=== PATIENT | male | born 1935 | race Caucasian/White ===

== ENCOUNTER 2024-10-02 16:44 | Inpatient (IN) | payer OTHER, MEDICARE ==
[~2024-10-02] VITALS: Ht 165.1 cm; Wt 80.3 kg
[2024-10-02 19:14] VITALS: BP 125/73
--- NOTE | 2024-10-02 19:31 | NUR ---
pt arrived via [place] acompanied by [facility]. Pt on room air, sobwith exertion noted. cooperative with admit questions and assessments.
[2024-10-02 19:37] LABS: BASOPHILS 0.4 % (0-2); EOSINOPHILS 0.5 % (0-6); HEMATOCRIT 23.7 % (35.0-50.0); HEMOGLOBIN 7.6 g/dL (12.0-18.0); MCH 25.2 (27-36); MCHC 31.9 g/dl (30-36); MCV 78.9 fl (81-99); MONOCYTES 11.2 % (0-12); NEUTROPHILS 69.9 % (39-80); PLATELET COUNT 385 K/uL (140-440)
[2024-10-02 20:01] LABS: ALBUMIN 3.1 g/dL (3.4-5.0); ALBUMIN/GLOBULIN RATIO 0.94 (1.1-2.4); ANION GAP 17.3 (7-21); BUN/CREATININE RATIO 19.73 (6.0-28.6); CALCIUM 8.3 mg/dL (8.5-10.1); CREATININE, SERUM 1.52 mg/dL (0.70-1.30); POTASSIUM 4.3 mmol/L (3.5-5.1); PROTEIN, TOTAL 6.4 g/dL (6.4-8.2); TSH, 3RD GENERATION 1.463 uIU/mL (0.358-3.740)
--- NOTE | 2024-10-02 20:22 | NUR ---
troponin 208.5, dr lopez notified verbally. md in room with pt. tele#[address], afib w SVPB. sob with any exertion noted, denies CP. EKG obtained. in room. med list obtained
[2024-10-02] MEDS ORDERED: ondansetron HCL 4 MG/2 ML VIAL IV PRN (20:45)
[2024-10-02] MEDS ORDERED: GLUCAGON,HUMAN RECOMBINANT 1 MG/ML VIAL SUB-Q PRN (20:45)
[2024-10-02] MEDS ORDERED: ACETAMINOPHEN 325 MG TAB PO PRN (20:45)
[2024-10-02] MEDS ORDERED: bisacodyL 10 MG SUPP PR PRN (20:45)
[2024-10-02] MEDS ORDERED: DEXTROSE 5% 1,000 ML IV PRN (20:45)
[2024-10-02] MEDS ORDERED: DEXTROSE 50% 50 ML SYR IV PRN ×2 (20:45)
[2024-10-02] MEDS ORDERED: IBLOOD GLUCOSE TEST STRIP 1 EA TEST XX PRN (20:45)
[2024-10-02] MEDS ORDERED: CEFTRIAXONE/SODIUM CHLORIDE 2 GM/100 ML PIGGYBACK IV SCH (20:47)
[2024-10-02] MEDS ORDERED: FLUOROURACIL40 GM TOP (20:47)
[2024-10-02] MEDS ORDERED: AZITHROMYCIN 250 MG TAB PO SCH (20:48)
[2024-10-02] MEDS ORDERED: IBLOOD GLUCOSE TEST STRIP 1 EA TEST VI SCH (21:00)
[2024-10-02] MEDS ORDERED: FUROSEMIDE 100 MG/10 ML VIAL IV ONE (21:00)
[2024-10-02] MEDS ORDERED: MELATONIN 3 MG TAB PO PRN (21:00)
[2024-10-02] MEDS ORDERED: INSULIN LISPRO 100 UNIT/ML ML SUB-Q SCH (21:00)
[2024-10-02] MEDS ORDERED: APIXABAN 2.5 MG TAB PO SCH (21:00)
[2024-10-02] MEDS ORDERED: LISINOPRIL5 MG PO (21:14)
[2024-10-02] MEDS ORDERED: ISOSORBIDE MONO30 MG PO (21:14)
[2024-10-02] MEDS ORDERED: TOPROL XL25 MG PO (21:15)
[2024-10-02] MEDS ORDERED: NITROGLYCERIN0.4 MG SL (21:15)
[2024-10-02] MEDS ORDERED: PROTONIX40 MG PO (21:16)
[2024-10-02] MEDS ORDERED: CARBOXYMETHYLCE15 ML OU (21:18)
[2024-10-02] MEDS ORDERED: SPIRONOLACTONE25 MG PO (21:18)
[2024-10-02] MEDS ORDERED: VITAMIN C100 MG PO (21:19)
[2024-10-02] MEDS ORDERED: ADULT LOW DOSE81 MG PO (21:19)
[2024-10-02] MEDS ORDERED: LIPITOR80 MG PO (21:20)
[2024-10-02] MEDS ORDERED: THERA-D50 MCG PO (21:22)
--- NOTE | 2024-10-02 21:24 | NUR ---
Dr Dwyer in room with pt. new orders for acapella and cough drops given verbally
[2024-10-02] MEDS ORDERED: CLOPIDOGREL75 MG PO (21:28)
[2024-10-02] MEDS ORDERED: JARDIANCE10 MG PO (21:29)
[2024-10-02] MEDS ORDERED: B-12500 MCG PO (21:29)
[2024-10-02] MEDS ORDERED: MENTHOL/CETYLPYRD CL 1 LOZ LOZENGE PO PRN (21:30)
--- NOTE | 2024-10-02 21:33 | NUR ---
pt taken to DI for CAT SCAN via w/c.
--- NOTE | 2024-10-02 23:10 | NUR ---
PATIENT CALLED STATING "I PEED". IN TO THE ROOM. PATIENT HAVE MALE PUREWICK. TUBING IS KINK. PATIENT HOSPITAL PANTS AND OWN UNDERWEAR ARE WET. RAINER CARE DONE. CHANGED CHUX AND ATTENDS UNDER PLACED. PUREWICK IN WORKING. ICE WATER REFRESHED. BED ALARM ON FOR SAFETY. IN SITTING UP IN THE CHAIR. DENIES FURTHER NEEDS AT THIS TIME.
--- NOTE | 2024-10-02 23:55 | NUR ---
awake, watching tv. continues to have moist non productive cough, sob with exertion. purewick in place.
[2024-10-03] VITALS (8 sets, daily range): BP systolic 108–126; BP diastolic 46–74
--- NOTE | 2024-10-03 00:20 | NUR ---
PATIENT CALLED STATING "PEE BAG IS FULL". IN TO THE ROOM. EMPTIED CANISTER AND BACK IN PLACED. PATIENT DENIES OTHER NEEDS.
--- NOTE | 2024-10-03 02:31 | NUR ---
Awakens easily, no c/o pain, improved breathing, on room air. Lungs coarse exp. tele#[address], on SR/ STach , denies CP. continues to have moist productive cough of thick clear to pink phlegm. male purewick in place, draining large amounts of clear urine. decreased edema noted L leg, still 1+ R LE, elevated. no c/o Pain. in room
--- NOTE | 2024-10-03 02:34 | NUR ---
Protonin 225.7. will notify Dr Dwyer in am, pt asymptomatic
--- NOTE | 2024-10-03 04:19 | NUR ---
awakens easily, no c/o cp, tele#[address] SR SVPB's. On room air, much improved breathing effort. male purewick in place, draining large amounts of clear yellow urine., repositions self in bed. tolerating sips of fluids, edema to L leg much improved.. at bedside
[2024-10-03 05:22] LABS: BASOPHILS 0.5 % (0-2); EOSINOPHILS 0.5 % (0-6); HEMATOCRIT 25.7 % (35.0-50.0); HEMOGLOBIN 8.2 g/dL (12.0-18.0); LYMPHOCYTES 14.8 % (24-44); MCH 24.8 (27-36); MCHC 32.1 g/dl (30-36); MCV 77.4 fl (81-99); MONOCYTES 11.9 % (0-12); NEUTROPHILS 72.3 % (39-80); PLATELET COUNT 378 K/uL (140-440); RBC 3.32 M/ul (4.3-5.7); RDW 18.6 (10.5-15.0)
[2024-10-03 05:30] LABS: ANION GAP 15.9 (7-21); BUN/CREATININE RATIO 18.18 (6.0-28.6); CALCIUM 8.8 mg/dL (8.5-10.1); CREATININE, SERUM 1.65 mg/dL (0.70-1.30); POTASSIUM 3.9 mmol/L (3.5-5.1)
--- NOTE | 2024-10-03 05:43 | NUR ---
awake, very minimum sob with exertion noted. Up for standing weight 84.2KG pure wick in place. decreased edema to LE noted. elevated. pleasant and cooperative
--- NOTE | 2024-10-03 06:05 | NUR ---
oral lozenger given on requests per moist cough-sore throat.
--- NOTE | 2024-10-03 07:17 | NUR ---
VERBAL REPORT RECEIVED FROM ESTUARDO CLANCY. PT RESTS IN BED WITH EYES CLOSED, RESP EVEN AND UNLABORED.
--- NOTE | 2024-10-03 07:27 | NUR ---
UR CLINICAL REVIEW: 2 [place] FOR [facility]ERSALUS-MEETS INPT CRITERIA FOR CHF MEDICARE INPT 10/02/24 @ 2044 ORDER MATCHES REG NO AUTH REQUIRED PER MEDICARE GUIDELINES DISCHARGE TO HOME WHEN STABLE
[2024-10-03] MEDS ORDERED: ALBUTEROL/IPRATROPIUM 3 ML NEB INH SCH (08:00)
--- NOTE | 2024-10-03 08:49 | NUR ---
IMAGING STAFF IN ROOM, ECHO IN PROGRESS.
[2024-10-03] MEDS ORDERED: CLOPIDOGREL BISULFATE 75 MG TAB PO SCH (09:00)
[2024-10-03] MEDS ORDERED: ATORVASTATIN 40 MG TAB PO SCH (09:00)
[2024-10-03] MEDS ORDERED: FUROSEMIDE 40 MG/4 ML VIAL IV SCH (09:00)
--- NOTE | 2024-10-03 09:59 | NUR ---
VISITED DURING SPIRITUAL CARE ROUNDS. PT SUPPORTED BY TRAIN CONTROL TECHNICIAN IN ROOM. BOTH EXPRESSED ELEAZAR SOURCE OF STRENGTH, DENIED IMMEDIATE NEEDS. CUT IN WORKER PROVIDED SUPPORTIVE PRESENCE, HOSPITALITY, PRAYER. PT AND TRAIN CONTROL TECHNICIAN EXPRESSED GRATITUDE, HOPE.
[2024-10-03] MEDS ORDERED: LEVOFLOXACIN500 MG PO (10:35)
[2024-10-03] MEDS ORDERED: IPRAT-ALBUT 0.5-3 ML INH (10:35)
--- NOTE | 2024-10-03 11:15 | NUR ---
Spoke with Berhane and his Lakisha. They live in [place]. House has 2 steps and a ramp. Pt does not use any assistive devices to walk. He has a nebulizer from his pcp for his pneumonia. He plans on dc to home when cleared medically. His pcp is V[facility] at [facility]. They deny financial issues. They do use assistance through [employer] for heating fuel. They deny other needs. Home when cleared medically.
[2024-10-03] MEDS ORDERED: PHARMACY RENAL DOSE ADJUSTMENT 1 DOSE MISC PO SCH (12:00)
[2024-10-03] MEDS ORDERED: STOPAIN118 ML TOP (13:46)
--- NOTE | 2024-10-03 13:51 | NUR ---
MED REC COMPLETE
[2024-10-03] MEDS ORDERED: MENTHOL TOP PRN (14:00)
--- NOTE | 2024-10-03 19:33 | NUR ---
REPORT RECIEVED FROM DAY SHIFT RN. PATIENT RESTING IN BED WITH IN ROOM. PATIENT DENIES NEEDS AT THIS TIME. CALL LIGHT IN REACH.
--- NOTE | 2024-10-03 20:35 | NUR ---
PATIENT RESTING IN BED. SCHEDULED MEDICATION ADMINISTERED. VS AND I&Os OBTAINED AND RECORDED. NEW PUREWICK PLACED AFTER RAINER CARE PROVIDED. IV FLUSHES WNL. ASSESSMENT COMPLETE. PATIENT DENIES FURTHER NEEDS AT THIS TIME. BED ALARM. RESTING IN CHAIR AT BEDSIDE. CALL LIGHT IN REACH.
--- NOTE | 2024-10-03 20:50 | NUR ---
CCU CALLED AND DISCUSSED WITH THIS RN THAT PATIENT HAS BEEN IN AND OUT OF AFIB DURING THE DAY SHIFT. PATIENT WAS IN AFIB AT 200. UPDATE PRIMARY RN.
[2024-10-03] MEDS ORDERED: HEParin SOD (PORCINE) 5,000 UNIT/ML SDV SUB-Q SCH (21:00)
--- NOTE | 2024-10-03 21:05 | NUR ---
CALL LIGHT ANSWERED. PATIENT REQUESTING PRN MEDICATION. MEDICATION APPLIED TO LEFT THIGH PER PATIENT REQUEST. PATIENT HAS NO FURTHER NEEDS. CALL LIGHT IN REACH.
--- NOTE | 2024-10-03 21:36 | NUR ---
UPDATED ON PATIENT BEING IN AND OUT OF AFIB. NO NEW ORDERS AT THIS TIME. PRIMAR RM UPDATED.
--- NOTE | 2024-10-03 22:52 | NUR ---
PATIENT RESTING IN BED ON BACK WITH EYES CLOSED. RESPIRATIONS EVEN AND UNLABORED. CALL LIGHT IN REACH.
[2024-10-04] VITALS (10 sets, daily range): BP systolic 101–120; BP diastolic 57–73
--- NOTE | 2024-10-04 01:11 | NUR ---
PATIENT RESTING IN BED WITH EYES CLOSED. VS AND I&Os OBTAINED AND RECORDED. PATIENT DENIES NEEDS AT THIS TIME. FRESH ICE WATER PROVIDED. BED ALARM ON. CALL LIGHT IN REACH.
--- NOTE | 2024-10-04 02:57 | NUR ---
PATIENT RESTING IN BED ON BACK WITH EYES CLOSED. RESPIRATIONS EVEN AND UNLABORED. CALL LIGHT IN REACH.
--- NOTE | 2024-10-04 05:21 | NUR ---
PATIENT RESTING IN BED. VS, I&Os AND BED WEIGHT OBTAINED AND RECORDED. PATIENT HAS NO CURRENT NEEDS. BED ALARM ON. CALL LIGHT IN REACH.
[2024-10-04 05:50] LABS: ALBUMIN 2.9 g/dL (3.4-5.0); ALBUMIN/GLOBULIN RATIO 0.85 (1.1-2.4); ANION GAP 15.5 (7-21); BILIRUBIN, TOTAL 1.3 ng/dL (0.2-1.0); BUN/CREATININE RATIO 23.91 (6.0-28.6); CALCIUM 8.4 mg/dL (8.5-10.1); CREATININE, SERUM 1.38 mg/dL (0.70-1.30); POTASSIUM 3.5 mmol/L (3.5-5.1); PROTEIN, TOTAL 6.3 g/dL (6.4-8.2)
--- NOTE | 2024-10-04 07:00 | NUR ---
VERBAL REPORT RECEIVED FROM ESTUARDO GENTILE. PT RESTS IN BED AWAKE AND ALERT, NO REQUESTS AT THIS TIME.
[2024-10-04] MEDS ORDERED: EMPAGLIFLOZIN 10 MG TAB PO SCH (09:00)
[2024-10-04] MEDS ORDERED: PANTOPRAZOLE SODIUM 40 MG TABEC PO SCH (09:00)
--- NOTE | 2024-10-04 09:54 | NUR ---
DR. SCRUGGS NOTIFIED OF PT HR OF 120'S - 140'S WITH A-FIB.
[2024-10-04] MEDS ORDERED: METOPROLOL TARTRATE 25 MG TAB PO SCH (09:55)
--- NOTE | 2024-10-04 11:49 | NUR ---
PUREWICK REMOVED. PT AMBULATES TO TOILET WITH SBA, STEADY GAIT. PT PASSES LARGE BM. PT BACK TO BED. PT INSTRUCTED TO USE CALL LIGHT FOR TOILETING NEEDS, VERBALIZES UNDERSTANDING.
--- NOTE | 2024-10-04 15:15 | NUR ---
Spoke with pt, , and son. They deny needs, plan cont. for pt to dc to home with when medically cleared. Pt would like to get up and start walking. Male bertinwiwendy is off. Per charge pt ok to walk with aid. I let the pt know he needs to use his call light and ask for the aid. Understanding stated.
--- NOTE | 2024-10-04 16:15 | NUR ---
PT RESTING IN BED WITH FAMILY IN ROOM. PT REQUESTED A LOZENGE. LOZENGE GIVEN PER ORDER. NO OTHER REQUESTS AT THIS TIME. CALL LIGHT WITHIN REACH.
--- NOTE | 2024-10-04 16:33 | NUR ---
PATIENT AMBULATED IN HALLWAY 1LAP SBA. PATIENT THEN TO BATHROM AND THEN TO CHAIR, SBA. FAMILY IN ROOM. CALL LIGHT IN REACH. NO FURTHER NEEDS AT THIS TIME.
--- NOTE | 2024-10-04 17:42 | NUR ---
WENT IN TO CHECK ON PATIENT. PATIENT IS SITTING UP IN HIS BED EATING HIS DINNER. ASKED HIM IS THERE ANYTHING HE NEEDS AND HE SAID NO NOT AT THIS TIME.
--- NOTE | 2024-10-04 18:02 | NUR ---
PT SITS UP IN BED, EATS DINNER, CALL LIGHT IN REACH. PT DENIES ANY NEEDS AT THIS TIME.
--- NOTE | 2024-10-04 19:14 | NUR ---
ANSWERED PATIENT'S CALL LIGHT. PATIENT NEEDED TO USE THE BATHROOM.
--- NOTE | 2024-10-04 19:26 | NUR ---
REPORT RECIEVED FROM DAY SHIFT RN. PATIENT RESTING IN BED WITH IN CHAIR AT BEDSIDE. PATIENT HAS NO CURRENT NEEDS. CALL LIGHT IN REACH.
--- NOTE | 2024-10-04 20:23 | NUR ---
CCU CALLED REGARDING PATIENTS HEART RHYTHM ON TELE. PATIENT IN VTACH FOR FOR 40 SECONDS PER CCU RN. PATIENT WAS IN AFIB PRIOR TO THE 40 SECOND RUN OF VTACH AND BACK TO AFIB AFTER. STRAP STITCHER, FLOAT RN, RT, AND THIS RN TO ROOM. VS OBTAINED AND RECORDED. PATIENT DENIES CHEST PAIN AT THIS TIME. PATIENT STATES HE DID NOT FEEL ABNORMAL AT THIS TIME. STRAP STITCHER REMAINS IN ROOM.
--- NOTE | 2024-10-04 20:34 | NUR ---
MD SCRUGGS UPDATED VIA TELEPHONE ON PATIENT 40 SECOND RUN OF VTACH. STAT BMP AND MAG ORDERS RECIEVED. ORDER VERIFIED USING REPEAT BACK METHOD.
[2024-10-04] MEDS ORDERED: APIXABAN 5 MG TAB PO SCH (21:00)
[2024-10-04 21:02] LABS: ANION GAP 12.5 (7-21); BUN/CREATININE RATIO 21.55 (6.0-28.6); CALCIUM 8.2 mg/dL (8.5-10.1); CREATININE, SERUM 1.67 mg/dL (0.70-1.30); MAGNESIUM 1.9 mg/dL (1.8-2.4); POTASSIUM 3.5 mmol/L (3.5-5.1)
--- NOTE | 2024-10-04 21:24 | NUR ---
LAB CALLED WITH TROPONIN LEVEL. PHONE CALL TO DR SCRUGGS, NO NEW ORDERS. CURRENTLY TELE WITH HR 116
--- NOTE | 2024-10-04 21:51 | NUR ---
ROUNDING ON PATIENT. PATIENT DENIES NEEDS AT THIS TIME. ASSESSMENT COMPLETE. R FOREARM IV LEAKING. R FOREARM IV DCd WNL WITH TIP INTACT. NEW IV PLACED BY THIS RN IN LEFT WRIST. PATIENT TOMMY WELL. PATIENT AND HAVE NO FURTHER NEEDS. BED ALARM ON. CALL LIGHT IN REACH.
--- NOTE | 2024-10-04 22:18 | NUR ---
CCU CALLED REGARDING PATIENTS HR. PATIENT HR IN THE 160s. MD ON FLOOR AT THIS TIME. HR QUICKLY BACK DOWN TO 110s-120s. THIS RN UPDATED MD OF HR. MD STATES HE WILL PLACE ORDERS.
[2024-10-04] MEDS ORDERED: POTASSIUM CHLORIDE 10 MEQ TABCR PO ONE (22:30)
[2024-10-04] MEDS ORDERED: MAGNESIUM OXIDE 400 MG TABLET PO ONE (22:30)
--- NOTE | 2024-10-04 22:52 | NUR ---
SCHEDULED MEDICATION ADMINISTERED.
[2024-10-04] MEDS ORDERED: FUROSEMIDE 100 MG/10 ML VIAL IV ONE (23:00)
[2024-10-04] MEDS ORDERED: ALBUMIN HUMAN 25% 100 ML BTL IV PRN (23:30)
--- NOTE | 2024-10-04 23:34 | NUR ---
SCHEDULED MEDICATION ADMINISTERED. PUREWICK PLACED AFTER PERICARE PROVIDED. NO FURTHER NEEDS. CALL LIGHT IN REACH.
[2024-10-05] VITALS (11 sets, daily range): BP systolic 94–118; BP diastolic 47–64
--- NOTE | 2024-10-05 01:10 | NUR ---
PATIENT RESTING IN BED. NO PAIN OR DISCOMFORT NOTED. VS AND I&Os OBTAINED AND RECORDED. PATIENT HAS NO FURTHER NEEDS. CALL LIGHT IN REACH.
--- NOTE | 2024-10-05 02:40 | NUR ---
PT CALLED, SAID HE WAS WET. HAS MALE PUREWICK. NOTED PUREWICK LOOSE ON THE LOWER AREA. PERICARE CARE COMPLETED. NEW MALE PUREWICK RECONNECTED. ASSISTED PT INTO SITTING HIGHER IN BED THE BED IS LOCKED AT 30%. BED ALARM IN PLACE. CALL LIGHT WITHIN REACH.
--- NOTE | 2024-10-05 05:10 | NUR ---
PATIENT RESTING IN BED. VS, STANDING WEIGHT AND I&Os OBTAINED AND RECORDED. PATIENT DENIES FURTHER NEEDS AT THIS TIME. CALL LIGHT IN REACH.
[2024-10-05 05:24] LABS: BASOPHILS 0.5 % (0-2); EOSINOPHILS 3.6 % (0-6); HEMATOCRIT 25.8 % (35.0-50.0); HEMOGLOBIN 8.3 g/dL (12.0-18.0); LYMPHOCYTES 14.7 % (24-44); MCH 24.3 (27-36); MCHC 32.1 g/dl (30-36); MCV 75.8 fl (81-99); NEUTROPHILS 71.2 % (39-80); PLATELET COUNT 350 K/uL (140-440); RDW 19.3 (10.5-15.0)
[2024-10-05 05:47] LABS: ANION GAP 10.8 (7-21); BUN/CREATININE RATIO 23.68 (6.0-28.6); CALCIUM 8.3 mg/dL (8.5-10.1); CREATININE, SERUM 1.52 mg/dL (0.70-1.30); MAGNESIUM 2.1 mg/dL (1.8-2.4); POTASSIUM 3.8 mmol/L (3.5-5.1)
--- NOTE | 2024-10-05 07:00 | NUR ---
REPORT RECEIVED FROM UNIT AID RN KRUPA. PATIENT IS LYING IN BED WITH EYES CLOSED AND RESPIRATIONS ARE UNLABORED. PATIENT IS LYING IN THE CHAIR. PATIENT STATED NO FURTHER NEEDS AT THIS TIME. CALL LIGHT AND PERSONAL BELONGINGS ARE WITHIN REACH.
--- NOTE | 2024-10-05 08:15 | NUR ---
0800 DUONEB COMPLETE AT THIS TIME WITH RT IN THE ROOM. 0900 MEDICATIONS ADMINISTERED PER THE EMAR AND PRN "STOPAIN" MEDICATION ADMINISTERED PER THE EMAR. PATIENT RATED PAIN 5/10 IN THE LEFT WRIST A "REY HORSE". PATIENT IS ALERT AND ORIENTED TIMES FOUR. PATIENT IS ON TELEMETRY NUMBER 7 AND IS SINUS TACHYCARDIA. HEART TONES ARE IRREGULAR ON AUSCULTATION. RADIAL AND PEDAL PULSES ARE STRONG BILATERALLY. CAPILLARY REFILL IS LESS THAN 3 SECONDS BILATERALLY. SENSATION INTACT WITH NO COMPLAINTS OF NUMBNESS AND TINGLING. PATIENT IS ON A 1,500 ML FLUID RESTRICTION AND ON A 2 G SODIUM DIET. BOWEL TONES ARE ACTIVE IN ALL FOUR QUADRANTS. IV SITE FLUSHED WITH 10 ML NORMAL SALINE AND THE IV DRESSING IS CLEAN, DRY, AND INTACT. LAST BM WAS 10/02/24. PATIENT IS ON ROOM AIR AND WITH NO COMPLAINTSE OF SOB. LUNG SOUNDS ARE CLEAR IN THE UPPPER LOBES AND DIMINISHED IN THE BASES BILATERALLY. PATIENT WITH A PRODUCTIVE COUGH NOTED. SKIN WITH SCATTERED BRUISING. PATIENT IS SET UP AND EATING BREAKFAST. PATIENT STATED NO FURTHER NEEDS AT THIS TIME. CALL LIGHT AND PERSONAL BELONGINGS ARE WITHIN REACH.
[2024-10-05] MEDS ORDERED: FUROSEMIDE 100 MG/10 ML VIAL IV SCH (09:00)
--- NOTE | 2024-10-05 09:20 | NUR ---
Spoke with pt and . They deny needs. They would like to go home, but aware pt is not medically ready.
--- NOTE | 2024-10-05 09:49 | NUR ---
PT NOT AVAILABLE FOR VISIT. PROVIDED PRAYER.
--- NOTE | 2024-10-05 09:52 | NUR ---
PATIENT IS SITTING UPRIGHT IN BED AND HIS IS SITTING IN THE CHAIR AT BEDSIDE. NORBERTO MCCAULEY IS IN THE ROOM. PATIENT STATED NO NEEDS AT THIS TIME. CALL LIGHT AND PERSONAL BELONGINGS ARE WITHIN REACH.
--- NOTE | 2024-10-05 10:30 | NUR ---
PATIENT IN BED AT THIS TIME. AUTOMATIC CORN GRINDER OPERATOR ASSISTED PATIENT INTO THE BATHROOM AND THEN BACK TO BED. AUTOMATIC CORN GRINDER OPERATOR CHARTED PATIENTS VOIDINGS ON CHART IN ROOM. CALL LIGHT WITHIN REACH, NO FURTHER NEEDS AT THIS TIME.
--- NOTE | 2024-10-05 10:32 | NUR ---
PATIENT IS LYING IN BED WITH HOB ELEVATED. PATIENT IS SITTING IN THE RECLINER AT BEDSIDE. PATIENT AND FAMILY STATED NO FURTHER NEEDS AT THIS TIME. CALL LIGHT AND PERSONAL BELONGINGS ARE WITHIN REACH.
--- NOTE | 2024-10-05 11:17 | NUR ---
PATIENT IS SITTING IN BED WITH HOB ELEVATED. PATIENT IS SPEAKING WITH TWO VISITORS SITTINON THE COUCH IN THE ROOM WITH HIS SITTING IN THE RECLINER AT BEDSIDE. PATIENT STATED NO FURTHER NEEDS, CALL LIGHT AND PERSONAL BELONGINGS ARE WITHIN REACH.
[2024-10-05] MEDS ORDERED: ALBUMIN HUMAN 25% 100 ML BTL IV ONE (12:00)
--- NOTE | 2024-10-05 12:04 | NUR ---
PER MD, ORDER TO INFUSE ALBUMIN DUE TO HYPOTENSION. PHARMACY CALLED AFTER VERIFYING WITH MD, NEW ORDERS UPDATED FOR CORRECT DOSE (100ML/25GRAMS). INFUSION STARTED, PRIMARY RN AWARE.
--- NOTE | 2024-10-05 12:28 | NUR ---
PATIENT IS SITTING IN BED WITH THE HOB ELEVATED AND EATING LUNCH. PATIENT IS FAUSTINO MORRIS THE RECLINER AT BEDSIDE. PATIENT WITH TWO VISITORS SITTING ON THE COUCH. CALL LIGHT AND PERSONAL BELONGINGS ARE WITHIN REACH.
--- NOTE | 2024-10-05 13:40 | NUR ---
PATIENT IS SITTING UPRIGHT IN BED WITH EYES OPEN AND RESPIRATIONS ARE EVEN AND UNLABORED. PAITENT WITH HIS SITTING IN THE RECLINER AT BEDSIDE. PATIENT WITH TAYO VISITORS SITTING ON THE COUCH. CALL LIGHT AND PERSONAL BELONGINGS ARE WITHIN REACH.
--- NOTE | 2024-10-05 14:14 | NUR ---
PATIENT IS LYING IN BED WITH EYES CLOSED AND RESPIRATIONS ARE EVEN AND UNLABORED. PATIENT WITH A VISITOR SITTING IN THE RECLINER AT BEDSIDE. CALL LIGHT AND PERSONAL BELONGINGS ARE WITHIN REACH.
[2024-10-05 14:26] LABS: ANION GAP 12.6 (7-21); BUN/CREATININE RATIO 20.25 (6.0-28.6); CALCIUM 8.3 mg/dL (8.5-10.1); CREATININE, SERUM 1.58 mg/dL (0.70-1.30); POTASSIUM 3.6 mmol/L (3.5-5.1)
--- NOTE | 2024-10-05 15:00 | NUR ---
REPORT RECEIVED FROM ESTUARDO WHALEY. PT RESTING IN BED AT THIS TIME WITH VISITOR AT BEDSIDE. NO REQUESTS, CALL LIGHT IN REACH.
[2024-10-05] MEDS ORDERED: POTASSIUM CHLORIDE 10 MEQ TABCR PO ONE (15:15)
--- NOTE | 2024-10-05 15:31 | NUR ---
FOCUSED ASSESSMENT COMPLETE. PT RESTING IN BED WITH NO COMPLAINTS OF PAIN, SHORTNESS OF BREATH, DENIES ANY NEEDS. PT HAS VISITOR AT BEDSIDE HER REPORTS IS HIS SON. PT IV IN L WRIST FLUSHES WNL. PT LUNG SOUNDS CLEAR ONLY IN RUL, DIMINISHED IN BLL AND MARCI. PT IS ON RA AND HAS OCCASIONAL COUGH. DENIES INTERVENTION FOR COUGH AT THIS POINT IN TIME. PT HEART TONES ARE IRREGULAR WITH TELE #[address] PT REQUESTS COFFEE - WITHIN HIS FLUID LIMIT FOR THE DAY - PROVIDED. PT HAS NO OTHER REQUESTS AT THIS TIME, CALL LIGHT IN REACH.
--- NOTE | 2024-10-05 18:15 | NUR ---
PT UP IN RECLINER AT THIS TIME, SON PRESENT BESIDE HIM. PT HAS BLE ELEVATED AND HAS NO COMPLAINTS AT THIS TIME. CALL LIGHT IN REACH.
--- NOTE | 2024-10-05 19:32 | NUR ---
REPORT RECIEVED FROM DAY SHIFT RN. PATIENT RESTING IN BED WITH IN ROOM. DENIES NEEDS AT THIS TIME. CALL LIGHT IN REACH.
--- NOTE | 2024-10-05 20:24 | NUR ---
PLANT CHIEF OBTAINED VITALS AND I&O. PT ICE WATER REFILLED. PT STATES NO FURTHER NEEDS AT THIS TIME. CALL LIGHT WITHIN REACH.
--- NOTE | 2024-10-05 21:07 | NUR ---
PATIENT RESTING IN BED. SCHEDULED MEDICATIONS ADMINISTERED. IV FLUSHES WNL. ASSESSMENT COMPLETE. PATIENT AND HAVE NO CURRENT NEEDS. BED ALARM ON. CALL LIGHT IN REACH.
--- NOTE | 2024-10-05 23:39 | NUR ---
PATIENT RESTING IN BED WITH EYES CLOSED. RESPIRATIONS EVEN AND UNLABORED. CALL LIGHT IN REACH.
[2024-10-06] VITALS (8 sets, daily range): BP systolic 102–120; BP diastolic 51–69
--- NOTE | 2024-10-06 00:29 | NUR ---
CALL LIGHT ANSWERED. PATIENT REPORTS PUREWICK LEAKING. THIS RN AND BALLOON PILOT OSMAN TO ROOM. NEW PUREWICK, BREIF AND LIN PLACED AFTER PERICARE PROVIDED. VS AND I&Os OBTIANED AND RECORDED. PATIENT DENIES FURTHER NEEDS AT THIS TIME. CALL LIGHT IN REACH. BED ALARM ON.
--- NOTE | 2024-10-06 02:34 | NUR ---
PATIENT RESTING IN BED ON BACK WITH EYES CLOSED. RESPIRATIONS EVEN AND UNLABORED. CALL LIGHT IN REACH.
--- NOTE | 2024-10-06 05:14 | NUR ---
PATIENT RESTING IN BED. VS, STANDING WEIGHT AND I&Os OBTAINED AND RECORDED. PATIENT TOMMY WELL. PATIENT REPOSTIONED IN BED. NO FURTHER NEEDS. CALL LIGHT IN REACH. BED ALARM ON.
[2024-10-06 05:37] LABS: ALBUMIN 3.3 g/dL (3.4-5.0); ALBUMIN/GLOBULIN RATIO 0.97 (1.1-2.4); ANION GAP 12.9 (7-21); BILIRUBIN, TOTAL 1.3 ng/dL (0.2-1.0); BUN/CREATININE RATIO 21.19 (6.0-28.6); CALCIUM 8.6 mg/dL (8.5-10.1); CREATININE, SERUM 1.51 mg/dL (0.70-1.30); POTASSIUM 3.9 mmol/L (3.5-5.1); PROTEIN, TOTAL 6.7 g/dL (6.4-8.2)
--- NOTE | 2024-10-06 07:18 | NUR ---
REPORT RECEIVED FROM ESTUARDO GENTILE. PT RESTING IN BED, RESPONDS WHEN THIS RN ENTERS. PTs PRESENT IN RECLINER AT BEDSIDE. PT HAS NO REQUESTS AT THIS TIME, PUREWICK IN PLACE DRAINING CLEAR, YELLOW URINE. CALL LIGHT IN REACH.
[2024-10-06] MEDS ORDERED: ALBUTEROL/IPRATROPIUM 3 ML NEB INH SCH (08:00)
--- NOTE | 2024-10-06 08:25 | NUR ---
MEDICATIONS ADMINISTERED, SEE NOV. BREAKFAST TRAY REMOVED. IV ABX INFUSING WNL. PRESENT AT BEDSIDE. PT HAS NO REQUESTS AT THIS TIME, CALL LIGHT IN REACH.
[2024-10-06] MEDS ORDERED: TORSEMIDE 20 MG TAB PO SCH (09:00)
[2024-10-06] MEDS ORDERED: POTASSIUM CHLORIDE 10 MEQ TABCR PO ONE (09:00)
--- NOTE | 2024-10-06 09:31 | NUR ---
VISITED DURING SPIRITUAL CARE ROUNDS. PT SUPPORTED BY IN ROOM. BOTH IN OVERALL GOOD SPIRITS, EXPRESSED SLIM AT IMMINENT DISCHARGE. CONTRACTING MANAGER PROVIDED SUPPORTIVE PRESENCE, HOSPITALITY, PRAYER. PT AND EXPRESSED GRATITUDE.
--- NOTE | 2024-10-06 10:13 | EKG ---
[facility] [address] [facility] [place], [place] [address] Signed Atrial fibrillation Nonspecific intraventricular conduction delay ST \T\ T wave abnormality, consider inferolateral ischemia Abnormal ECG No previous ECGs available Confirmed by Canid Scruggs DO ([id number]) on 10/06/2024 10:13:39 AM Electronically Signed By: CANDI SCRUGGS DO 10/06/24 1013 PATIENT NAME: JANEEN ARNDT Electrocardiogram DATE OF : [birth year] PHYSICIAN: CANDI SCRUGGS DO REPORT #: [id number] REPORT IS CONFIDENTIAL AND NOT TO BE RELEASED WITHOUT AUTHORIZATION
--- NOTE | 2024-10-06 10:16 | EKG ---
[facility] [place] [facility] [address] [facility] [place], [place] [address] Signed Atrial fibrillation with rapid ventricular response Nonspecific intraventricular conduction delay Marked ST abnormality, possible anterolateral subendocardial injury Abnormal ECG No previous ECGs available Confirmed by Vaughn Scruggs DO ([id number]) on 10/06/2024 10:16:54 AM Electronically Signed By: VAUGHN SCRUGGS DO 10/06/24 1016 PATIENT NAME: YRISJANEEN Noel Electrocardiogram DATE OF : [birth year] PHYSICIAN: VAUGHN SCRUGGS DO REPORT #: [id number] REPORT IS CONFIDENTIAL AND NOT TO BE RELEASED WITHOUT AUTHORIZATION
[2024-10-06] MEDS ORDERED: ELIQUIS5 MG PO (10:34)
[2024-10-06] MEDS ORDERED: TORSEMIDE20 MG PO (10:37)
--- NOTE | 2024-10-06 10:38 | NUR ---
ASSESSMENT COMPLETE. PT RESTING IN BED WITH AT BEDSIDE, HE IS EAGER TO BE GOING HOME. LUNG SOUNDS CLEAR THROUGHOUT, DIMINISHED IN THE RLL. PT REPORTS NO SOB, HE IS ON ROOM AIR WITH OCCASIONAL COUGH. HE REPORTS HIS COUGH PREVIOUSLY WAS NONPRODUCTIVE BUT SINCE RECEIVING A BREATHING TREATMENT FROM RT THIS MORNING HE IS HAVING CLEAR SECRETIONS. SECRETIONS NOTED IN EMESIS BAG ARE WHITISH-CLEAR AND THIN. PT HEART SOUNDS HEAR WNL, PT REPORTS NO NUMBNESS OR TINGLING, PULSES FELT 2+ AND STRONG IN ALL EXTREMETIES. PT REPORTS NO PAIN OR DISCOMFORT AT THIS TIME. PT REQUESTING TO SPEAK WITH CASE MANAGEMENT, JOYCELYN NOTIFIED AND STATES SHE WILL BE DOWN. NO OTHER REQUESTS, CALL LIGHT IN REACH.
[2024-10-06] MEDS ORDERED: POTASSIUM CHLO20 ME1 PO (10:39)
[2024-10-06] MEDS ORDERED: ENTRESTO 24 MG1 EACH PO (10:40)
--- NOTE | 2024-10-06 10:51 | NUR ---
IV IN L FOREARM REMOVED WNL, CATH INTACT. IV NOT IN PROCESS INTERVENTIONS IN [facility].
--- NOTE | 2024-10-06 10:58 | NUR ---
Spoke with pt and . They have spoken with and plan on dc today. They deny needs. IM letter completed.
--- NOTE | 2024-10-06 11:21 | NUR ---
PHARMACY IN ROOM AT THIS TIME TO EDUCATE PT.
--- NOTE | 2024-10-06 11:35 | NUR ---
DISCHARGE INSTRUCTIONS AND EDUCATION PROVIDED, ALL QUESTIONS ANSWERED, PT AND PT VERBALIZE UNDERSTANDING, PT PROVIDES TEACH BACK ON MEDICATION DOSAGE AND IMPORTANCE OF WEIGHING HIMSELF. NO OTHER REQUESTS AT THIS TIME, CALL LIGHT IN REACH.
--- NOTE | 2024-10-06 11:58 | NUR ---
PT ASSISTED OUT OF BED TO BATHROOM. MALE PUREWICK REMOVED, PT UNDERWEAR PLACED PER HIS REQUEST. BACK TO BED, SITTING ON EDGE OF BED HAVING LUNCH. /FRIEND PRESENT AT BEDSIDE. ALL PT CARE NEEDS MET, CALL LIGHT IN PLACE. PT REMINDED TO CALL IF NEEDS ANY ASSISTANCE.
--- NOTE | 2024-10-06 12:11 | NUR ---
PT USING RESTROOM INDEPENDENTLY GETTING HIMSELF DRESSED. LUNCH TRAY IN ROOM.
== END 2024-10-06 13:00 | disposition home or self-care (01) | DRG 193 ==
LOC: MS 16:44
PROVIDERS: ADMIT Student in an Organized Health Care Education/Training Program; ATTEND Student in an Organized Health Care Education/Training Program
PROC: 30233J1 Transfusion of Nonautologous Serum Albumin into Peripheral Vein, Percutaneous Approach (ICD-10-PCS; principal; 2024-10-04)
DX: J18.9 Pneumonia, unspecified organism (principal); I50.43 Acute on chronic combined systolic (congestive) and diastolic (congestive) heart failure; N17.9 Acute kidney failure, unspecified; I24.89 Other forms of acute ischemic heart disease; Z66 Do not resuscitate; I11.0 Hypertensive heart disease with heart failure; I25.10 Atherosclerotic heart disease of native coronary artery without angina pectoris; E11.9 Type 2 diabetes mellitus without complications; K21.9 Gastro-esophageal reflux disease without esophagitis; I48.91 Unspecified atrial fibrillation; E78.5 Hyperlipidemia, unspecified; I25.2 Old myocardial infarction; Z88.7 Allergy status to serum and vaccine
CPT/HCPCS: 36415; 71260; 80048; 80053; 83735; 83880; 84439; 84443; 84484; 85025; 93005; 93010; 93306; 94640; 94667; 94668; 94760; A9270; J0696; J1644; J1940; P9047